=== PATIENT | female | born 1940 | race American Indian/Alaskan Native ===

== ENCOUNTER 2018-06-21 09:46 | Day surgery (SDC) | payer MEDICARE ==
[2018-06-21] MEDS ORDERED: NACL 0.9% 1000 ML 1,000 ML ONE (09:54)
[2018-06-21] MEDS ORDERED: NACL 0.9% 1000 ML 1,000 ML IV SCH (10:00)
--- NOTE | 2018-06-21 10:11 | Anesthesia Consultation ---
Anesthesia Consult and Med Hx Date of service: 06/21/18 - Airway Anesthetic Teeth Evaluation: Good ROM Head & Neck: Adequate Mental/Hyoid Distance: Adequate Mallampati Class: Class II Intubation Access Assessment: Probably Good - Pulmonary Exam CTA: Yes - Cardiac Exam Cardiac Exam: RRR - Pre-Operative Health Status ASA Pre-Surgery Classification: ASA3 Proposed Anesthetic Plan: MAC - Pulmonary Hx Smoking: No Hx Respiratory Symptoms: No Hx Sleep Apnea: No - Cardiovascular System Hx Hypertension: Yes (took medication this morning ) Hx Coronary Artery Disease: No Hx Angina: No Hx Cardia Arrhythmia: No - Central Nervous System Hx Seizures: No CVA: No - Gastrointestinal Hx Gastroesophageal Reflux Disease: No - Endocrine Hx Renal Disease: No Hx Liver Disease: No Hx Insulin Dependent Diabetes: No Hx Non-Insulin Dependent Diabetes: Yes Hx Thyroid Disease: No - Hematic Hx Anemia: No Hx Sickle Cell Disease: No - Other Systems Hx Alcohol Use: No Hx Obesity: Yes (BMI 42.9) - Additional Comments Anesthesia Medical History Comments: No GAC, No FHAC
--- NOTE | 2018-06-21 10:12 | Anesthesia Day of Surgery ---
Anesthesia Day of Surgery - Day of Surgery Patient Examined: Yes Patient H&P Reviewed: Yes Patient is NPO: Yes Beta Blockers: No Cardiac Clearance: No Pulmonary Clearance: No
[2018-06-21] MEDS ORDERED: DIPRIVAN 10 MG/ML IV ONE (11:35)
--- NOTE | 2018-06-21 12:07 | Short Stay Summary ---
Short Stay Documentation Date of service: 06/21/18 Narrative H&P: The patient presents for screening colonoscopy. Last study 10 years ago. - History Past Medical History: arthritis, diabetes, hypertension Past Surgical History: hysterectomy Social history: no significant social history, lives with family, no smoking, no alcohol abuse - Allergies and Medications Current Medications: Allergies No Known Allergies Allergy (Unverified 06/21/18 09:47) Home Medications Medication Instructions Recorded Confirmed Last Taken Type Aspirin 81 mg PO DAILY 06/21/18 06/21/18 06/20/18 History Hydrochlorothiazide 25 mg PO DAILY 06/21/18 06/21/18 06/20/18 History Lisinopril 40 mg PO DAILY 06/21/18 06/21/18 06/20/18 History Simvastatin 20 mg PO DAILY 06/21/18 06/21/18 06/20/18 History amLODIPine 5 mg PO DAILY 06/21/18 06/21/18 06/20/18 History metFORMIN 500 mg PO DAILY 06/21/18 06/21/18 06/20/18 History Active Medications Sodium Chloride (Nacl 0.9% 1000 Ml) 1,000 mls @ 50 mls/hr IV DIRECT MATHIEU Last Admin: 06/21/18 10:45 Dose: 50 mls/hr Documented by: - Physical exam General appearance: no acute distress, well-nourished, obese Integumentary: no rash, no growths, no abnormal pigmentation HEENT: Atraumatic, PERRLA, EOMI, Mucous membr. moist/pink Lungs: Clear to auscultation, Normal air movement Breasts: deferred Heart: Regular rate, Normal S1, Normal S2, No murmurs Gastrointestinal: normoactive bowel sounds, no tenderness, no distended, no masses, no guarding, no organomegaly Female Genitourinary: deferred Rectal Exam: normal exam-external/orifice, normal rectal tone Extremities: no ischemia, pulses intact, pulses symmetrical, No edema, normal temperature, normal color, Full ROM Neurological: Normal gait, Normal speech, Strength at 5/5 X4 ext, Normal tone, Sensation intact, Cranial nerves 3-12 NL - Brief post op/procedure progress note Date of procedure: 06/21/18 Findings: see dictation Estimated blood loss: none Pathology: none Condition: stable - Disposition Condition at discharge: Good Disposition: DC-01 TO HOME OR SELFCARE - Discharge Diagnoses (1) Colon cancer screening Status: Acute Short Stay Discharge Plan Activity: other (no driving for 24 hours) Weight Bearing Status: Weight Bear as Tolerated Diet: regular Follow up with: MARIA L VILLARREAL MD [Primary Care Provider] - 7 Days
--- NOTE | 2018-06-21 12:11 | Operative Report ---
Operative Report Operative Report: Date of procedure: 06/21/2018 Preprocedure diagnosis: Colon cancer screening, routine interval study. Last 10 years ago. Post procedure diagnosis: Mild diverticulosis of the left colon Procedure: Colonoscopy to the cecum Endoscopist: Dr. Jean Baptiste Anesthesia: Monitored anesthesia care per anesthesia department Estimated blood loss: 0 Medications: Monitored anesthesia care. See separate report by anesthesia for details. After careful discussion of the nature and purpose of the procedure as well as details of the technique risks benefits and alternatives the patient gave consent. Please see recent history and physical from the office. The patient was placed in the left lateral decubitus position and medicated per anesthesia. A rectal exam was performed sphincter tone was normal there were no masses palpable. The [employer] 570 scope was passed transanally and advanced under continuous direct vision without difficulty to the cecum. The colon was well prepared. The cecum was normal. The ascending colon was normal and on forward and retroflexed views. The transverse colon and descending colon normal. The sigmoid colon revealed scattered diverticula but was otherwise normal. The rectum was normal on forward and retroflexed views. The procedure was well- tolerated overall and the patient was observed in recovery. Conclusions: Mild sigmoid diverticulosis, otherwise normal colon to the cecum. Plan: Repeat colonoscopy in 10 years, sooner if clinically indicated. Signed electronically: Harjit Jean Baptiste M.D.
[2018-06-21 15:41] VITALS: BP 134/60
== END 2018-06-21 09:47 | disposition home or self-care (01) ==
LOC: GIO 09:46
PROVIDERS: ATTEND Internal Medicine Gastroenterology
DX: Z12.11 Encounter for screening for malignant neoplasm of colon (principal); K57.30 Diverticulosis of large intestine without perforation or abscess without bleeding; I10 Essential (primary) hypertension; E66.9 Obesity, unspecified; E11.9 Type 2 diabetes mellitus without complications; M19.90 Unspecified osteoarthritis, unspecified site; Z79.899 Other long term (current) drug therapy; Z79.84 Long term (current) use of oral hypoglycemic drugs; Z79.82 Long term (current) use of aspirin; Z68.41 Body mass index [BMI] 40.0-44.9, adult; Z90.710 Acquired absence of both cervix and uterus
CPT/HCPCS: 82962; G0121; J2704; J7030